=== PATIENT | female | born 1985 ===

== ENCOUNTER 2017-07-31 10:06 | Inpatient (IN) ==
[2017-07-31] MEDS ORDERED: Oxytocin 20 units/ LR 1000 mL 20 UNIT/1,000 ML BAG IVC ONE (11:09)
[2017-07-31] MEDS ORDERED: Famotidine 20 MG/2 ML VIAL IVP PRN (11:09)
[2017-07-31] MEDS ORDERED: Metoclopramide 10 MG/2 ML VIAL IVP PRN (11:09)
[2017-07-31] MEDS ORDERED: CeFAZolin Pre 2,000 MG/100 ML 2,000 MG/100 ML BAG IVPB ONE (11:09)
[2017-07-31] MEDS ORDERED: Ringers Solution, Lactated 1,000 ML IVC ONE (11:09)
[2017-07-31] MEDS ORDERED: Ringers Solution, Lactated 1,000 ML IVC SCH (11:15)
[2017-07-31] MEDS ORDERED: Oxytocin 20 units/ LR 1000 mL 20 UNIT/1,000 ML BAG IVC SCH ×2 (11:15→18:20)
[2017-07-31 12:04] LABS: Basophils % 0.3 %; Eosinophils # 0.2 K/mcL (0.0-0.6); Eosinophils % 1.6 %; Hemoglobin 12.5 g/dL (11.5-15.4); Immature Granulocytes % 0.6 % (0-4); Lymphocytes # 1.8 K/mcL (0.6-4.6); Lymphocytes % 17.8 %; Mean Corpuscular HGB Conc 32.9 g/dL (31.6-35.5); Mean Corpuscular Hemoglobin 28.7 pg (28.0-33.3); Mean Corpuscular Volume 87.2 fL (83.0-100.0); Mean Platelet Volume 11.7 fL (9.4-12.4); Monocytes # 0.6 K/mcL (0.0-1.3); Neutrophils # 7.6 K/mcL (1.6-8.9); Platelet Count 162 K/mcL (140-400); Red Blood Count 4.36 M/mcL (3.82-4.97); Red Cell Distribution Width 14.4 % (11.5-14.5); Segmented Neutrophils % 73.7 %
[2017-07-31 12:13] LABS: Amphetamine Screen,Urine Negative ng/mL (Cutoff=1000); Barbiturate Screen,Urine Negative ng/mL (Cutoff=200); Benzodiazepines Screen,Urine Negative ng/mL (Cutoff=200); Cannabinoid Screen,Urine Negative ng/mL (Cutoff = 50); Cocaine Screen,Urine Negative ng/mL (Cutoff= 300); Opiate Screen,Urine Negative ng/mL (Cutoff=300); Phencyclidine Screen,Urine Negative ng/mL (Cutoff=25)
--- NOTE | 2017-07-31 13:20 | OB/GYN History & Physical ---
Date of Encounter: 07/31/17 Time of Encounter: 13:18 Assessment and Plan (1) 39 weeks gestation of Current visit: No Status: Acute Patient presents at 39 weeks gestation for repeat section as well as bilateral partial salpingectomy. Questions are answered and consent was obtained. History of Present Illness Chief complaint: Here for repeat c-sec and BPS HPI: Ms. Marcos is a 32 year old female as instructed for repeat section as well as tubal ligation. was first been uncomplicated. Upon arrival she reports good movement denies bleeding and leakage fluid. She does desire permanent sterilization. Consent was obtained questions answered Past Med Surg Social Fam HX - Past Medical History Source: patient, old records reviewed Medical history: no medical history Psychiatric history: no psych history - Past Surgical History Surgical History: - Social History Smoking Status: Never smoker Smokeless Tobacco Status: No Alcohol use: none Drug use: none - Family History Father Name: denies any medical history Living Status: Still Living Hx Family Endocrine Disorder: Yes Obstetrical History - Pregnancies : 3 Para: 2 Medications and Allergies Vit/FA 1 each PO DAILY 09/29/15 [History] 3 Allergy/AdvReac Type Severity Reaction Status Date / Time No Known Allergies Allergy Verified 09/29/15 11:01 Exam - Constitutional Constitutional: well developed, well nourished - HEENT HEENT: EOMI, PERRL - Lungs Respiratory exam: CTAB - Cardiovascular Cardiovascular exam: RRR - Abdomen Abdomen: Present: gravid, non tender - Extremities Deep Tendon Reflex Grade: 2+ Normal Results Result Diagrams: 07/31/17 10:40 All other labs normal.
--- NOTE | 2017-07-31 13:44 | Anesthesia Evaluation PreOp ---
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 Other Medical History: Denies Any Significant HX Anesthesia History: No Prior Anesthetic Complications, Past Anesthesia ( sections x 2) : Yes () Alcohol Use: none Drug use: none Medications and Allergies Vit/FA 1 each PO DAILY 09/29/15 [History] 3 Allergy/AdvReac Type Severity Reaction Status Date / Time No Known Allergies Allergy Verified 09/29/15 11:01 - Meds/Allergy Pre-op Review Medications Reviewed: Yes Allergies Reviewed: Yes Beta Blockers on Current Med List: No Anesthesia Results - Labs 07/31/17 10:40 Anesthesia Exam O2 Sat Height 1.57 m Weight 62.8 kg bp 111/65 Height: 62 Weight: 62 NPO (# of Hours): greater than 8 hours - HEENT Pupil (Motor): Pupils equal Mallampati: II Teeth: Normal Oral Opening: Greater than 3 - BINDERY CUTTER OPERATOR LOC: Oriented BINDERY CUTTER OPERATOR Motor: Normal RUE, Normal LUE, Normal RLE, Normal LLE, Normal Face BINDERY CUTTER OPERATOR Sensory: Normal: RUE, LUE, RLE, LLE, Face - Cardiac Rhythm: Regular Murmur: None JVD: No Carotid Bruit: No - Pulmonary Breath Sounds: bilateral Clear Respiratory Effort: Symmetrical Anesthesia Assess/Plan ASA Score: 2 Modified Violeta Scale for Level of Consciousness: Cooperative, oriented, and tranquil Anesthetic Plan: Regional Monitoring Plan: Standard Monitors Recovery Plan: PACU
[2017-07-31] MEDS ORDERED: *HR* FentaNYL (PF) 100 MCG/2 ML VIAL ONE (14:18)
[2017-07-31] MEDS ORDERED: *HR* Morphine Sulfate/PF 5 MG/10 ML AMPUL ONE (14:18)
[2017-07-31] MEDS ORDERED: *HR* Oxytocin 10 UNIT/ML VIAL IM ONE (14:19)
[2017-07-31] MEDS ORDERED: Ondansetron 4 MG/2 ML VIAL IVP ONE (14:43)
[2017-07-31] MEDS ORDERED: *HR* HYDROmorphone (PF) 1 MG/ML SYRINGE IVP PRN (14:43)
[2017-07-31] MEDS ORDERED: *HR* Promethazine 25 MG/ML VIAL IVP PRN (14:43)
[2017-07-31] MEDS ORDERED: Ringers Solution, Lactated 1,000 ML ONE (14:55)
--- NOTE | 2017-07-31 15:53 | OB/GYN Procedure Note ---
Section - Date of procedure: 07/31/17 Preop diagnosis: desires repeat , desires sterilization Post-op diagnosis: same Procedure: section, repeat low transverse, bilateral tubal ligation Surgeon: Jamey Freeman Estimated blood loss (cc): 500 [employer] Representative: Emmett Arora Anesthesia Type: Spinal section complications: none Disposition: PACU - (s) A Infant Delivery Date: 07/31/17 Delivery Time: 14:59 Presentation: vertex Position: unknown Gender: Female Gram Weight: 3.16 kg at 1 minute: 8 at 5 minutes: 9 Shoulder Dystocia: not encountered Specimens collected: cord blood Placenta: spontaneous Cord: 3 umbilical vessels - Narrative Narrative: She was taken operating room where spinal anesthesia was administered she prepped draped in usual sterile fashion bladder was drained of clear urine. Scalp was used to make Pfannenstiel skin incision was sharply taken down the rectus fascia rectus fascia was incised midline fascial incision was extended bilaterally plain was developed and rectus muscle rectus fascia sipping distally rectus muscle divided midline peritoneum was entered sharply and bladder blade was placed and bladder flap was developed and lower uterine segment scalpel was used to make a low transverse uterine incision this was extended bluntly bilaterally membranes were ruptured clear fluid and infant was delivered from vertex presentation oropharynx and nasopharynx were suctioned of clear fluid cord was clamped and cut and infant was handed nurse personnel who were in attendance. Weight was found to be 6 lbs. 15 oz. Apgars of 8 at 1 minute and 9 at 5 minutes with spontaneous deliver normal placenta with three- vessel cord. Uterus was closed with 0 Vicryl running lock stitch second imbricating layer was placed with the first obtain hemostasis. Approximate 3 similar segment of each fallopian tube was double ligated with oh plain catgut suture transected and removed without difficulty irrigation was performed hemostasis was ensured fascia was closed 0 Vicryl running manner after closure of fascia can irrigation performed hemostasis was ensured skin edges reapproximated with 4-0 Vicryl all sponge and instruments counts are correct patient was taken recovery in good condition
[2017-07-31] MEDS ORDERED: Acetaminophen 325 MG TABLET PO PRN (18:20)
[2017-07-31] MEDS ORDERED: Measles/Mumps/Rubella Vacc 0.5 ML VIAL SQ PRN (18:20)
[2017-07-31] MEDS ORDERED: Rho Immune Globulin 1,500 UNIT SYRINGE IM PRN (18:20)
[2017-08-01 04:32] LABS: Basophils % 0.3 %; Eosinophils # 0.1 K/mcL (0.0-0.6); Eosinophils % 1.2 %; Hematocrit 34.9 % (35.3-44.9); Hemoglobin 11.2 g/dL (11.5-15.4); Immature Granulocytes % 0.4 % (0-4); Mean Corpuscular HGB Conc 32.1 g/dL (31.6-35.5); Mean Corpuscular Hemoglobin 27.9 pg (28.0-33.3); Mean Corpuscular Volume 86.8 fL (83.0-100.0); Mean Platelet Volume 11.3 fL (9.4-12.4); Monocytes # 0.6 K/mcL (0.0-1.3); Monocytes % 4.6 %; Neutrophils # 9.1 K/mcL (1.6-8.9); Platelet Count 165 K/mcL (140-400); Red Blood Count 4.02 M/mcL (3.82-4.97); Red Cell Distribution Width 14.2 % (11.5-14.5); Segmented Neutrophils % 76.5 %
[2017-08-01] MEDS: Ibuprofen 600 MG TABLET PO PRN ×2 (07:59→17:50)
[2017-08-01] MEDS: Prenatal Vit/FA 1 EACH TABLET PO SCH (07:59)
--- NOTE | 2017-08-01 10:19 | OB/GYN Progress Note ---
Date of Encounter: 08/01/17 Time of Encounter: 09:00 - Assessment and Plan (1) S/P repeat low transverse Current Visit: No Status: Acute POD#[address] Baptiste Patient tolerating regular diet and passing urine No flatus or BM as of yet Meeting POD1 milestones Continue current care plan Likely DC tomorrow Subjective - Subjective Interval history: Lochia mild Patient reports: appetite normal, voiding normally, pain well controlled, ambulating normally, no nauseated Lingle: doing well Objective - Vital Signs Latest vital signs: Vital Signs Temp Pulse Pulse Resp BP Pulse Ox 08/01/17 07:30 97.6 F 69 12 101/65 100 08/01/17 03:15 97.9 F 74 14 98/63 96 08/01/17 00:26 90 16 07/31/17 21:10 98.1 F 79 79 16 99/57 100 07/31/17 20:05 98.3 F 91 16 106/66 100 07/31/17 19:05 97.8 F 67 67 16 92/60 99 07/31/17 18:56 97.8 F 102 12 124/77 98 07/31/17 18:00 98.2 F 69 12 94/54 100 Intake and Output 07/31/17 08/01/17 08/01/17 23:59 07:59 15:59 Intake Total 240 / 240 360 / 360 Output Total 200 / 200 850 / 850 650 / 650 Balance 40 / 40 -490 / -490 -650 / -650 Intake: Oral 240 / 240 360 / 360 Output: Urine 650 / 650 Emesis 200 / 200 Catheter 850 / 850 Other: Weight 61.008 kg Patient Weight 08/01/17 23:59 Weight 61.008 kg - Exam Lungs: bilateral: normal Chest: Normal S1, Normal S2 Abdomen: Present: normal appearance Incision: Present: normal, dry, intact Uterus: Present: normal, firm - Labs Labs: Laboratory Results - last 24 hr 07/31/17 07/31/17 08/01/17 10:40 11:27 03:52 WBC 10.2 11.9 H RBC 4.36 4.02 Hgb 12.5 11.2 L Hct 38.0 34.9 L MCV 87.2 86.8 MCH 28.7 27.9 L MCHC 32.9 32.1 RDW 14.4 14.2 Plt Count 162 165 MPV 11.7 11.3 Immature Gran % 0.6 0.4 Seg Neutrophils % 73.7 76.5 Lymphocytes % 17.8 17.0 Monocytes % 6.0 4.6 Eosinophils % 1.6 1.2 Basophils % 0.3 0.3 Neutrophils # 7.6 9.1 H Lymphocytes # 1.8 2.0 Monocytes # 0.6 0.6 Eosinophils # 0.2 0.1 Basophils # 0.0 0.0 Urine Opiates Screen Negative Ur Barbiturates Screen Negative Ur Phencyclidine Scrn Negative Ur Amphetamines Screen Negative U Benzodiazepines Scrn Negative Urine Cocaine Screen Negative U Marijuana (THC) Screen Negative
[2017-08-02] MEDS: Ibuprofen 600 MG TABLET PO PRN (00:31)
[2017-08-02] MEDS: Prenatal Vit/FA 1 EACH TABLET PO SCH (08:28)
[2017-08-02 08:53] VITALS: BP 120/75
--- NOTE | 2017-08-02 10:20 | Discharge Summary ---
Date of Encounter: 08/02/17 Time of Encounter: 10:18 - Discharge Diagnosis (1) Mother currently breast-feeding Priority: Secondary Status: Acute (2) S/P repeat low transverse Priority: Primary Status: Acute Comments: Pt meeting all milestones. - Discharge Medications Prescriptions: Ibuprofen [Motrin] 600 mg PO Q6HR PRN #60 tab PRN Reason: Cramping Docusate [Colace] 100 mg PO BID #60 Home Medications: Vit/FA 1 each PO DAILY 09/29/15 [History] Docusate [Colace] 100 mg PO BID #60 08/02/17 [Rx] Ibuprofen [Motrin] 600 mg PO Q6HR PRN #60 tab 08/02/17 [Rx] Allergies/Adverse Reactions: 3 Allergy/AdvReac Type Severity Reaction Status Date / Time No Known Allergies Allergy Verified 09/29/15 11:01 Data Procedures and tests throughout hospitalization: Laboratory Tests 07/31/17 07/31/17 08/01/17 10:40 11:27 03:52 WBC 10.2 11.9 H RBC 4.36 4.02 Hgb 12.5 11.2 L Hct 38.0 34.9 L MCV 87.2 86.8 MCH 28.7 27.9 L MCHC 32.9 32.1 RDW 14.4 14.2 Plt Count 162 165 MPV 11.7 11.3 Immature Gran % 0.6 0.4 Seg Neutrophils % 73.7 76.5 Lymphocytes % 17.8 17.0 Monocytes % 6.0 4.6 Eosinophils % 1.6 1.2 Basophils % 0.3 0.3 Neutrophils # 7.6 9.1 H Lymphocytes # 1.8 2.0 Monocytes # 0.6 0.6 Eosinophils # 0.2 0.1 Basophils # 0.0 0.0 Urine Opiates Screen Negative Ur Barbiturates Screen Negative Ur Phencyclidine Scrn Negative Ur Amphetamines Screen Negative U Benzodiazepines Scrn Negative Urine Cocaine Screen Negative U Marijuana (THC) Screen Negative Date of admission: 07/31/17 10:06 Primary care physician: Kim Murillo CNP Consults: 07/31/17 18:20 Consult to Director Physical [CONS] Routine Comment: Vaginal delivery, consult needed Discharging clinician: Kathleen Jeong Anticipated date of discharge: 08/02/17 - Patient Status Disposition: Home, Self-Care Condition: Good Functional capacity at discharge: independent ambulation Overall status at discharge: patient is progressing back to baseline - Discharge Instructions Follow Up With: Kim Murillo CNP [Primary Care Provider] - Jamey Freeman MD [Partnered Physician] - Additional Instructions: Perineal Care: Always wipe front to back Change your pad frequently Use your misael bottle with warm water and spray front to back Do not douche, use tampons, have sexual intercourse or put anything in your vagina for 4-6 weeks after delivery Bleeding: Vaginal bleeding can last up to 6 weeks Your menstrual period may return as early as 6 weeks after you are discharged from the hospital Rama/Stitches Care: Vaginal Delivery Vaginal stitches will dissolve within 4-6 weeks Follow perineal care instructions Care Stitches will dissolve on their own If you have rama, they will need to be removed in the doctors office within 5-7 days. You may shower with stitches or rama Drip plan or soapy water over the incision to clean. Pat dry gently with a clean towel. Make sure you completely dry under the skin folds DO NOT USE powders, lotions, rubbing alcohol or hydrogen peroxide on or around your incision. This will slow your wound healing It is normal to have soreness, burning, tingling, itchiness and/or numbness as your incision heals Activity: Rest frequently Do not lift anything heavier than a gallon of milk, up to 10-15 pounds No driving for 1-2 weeks for Vaginal delivery No driving for 2-4 weeks for delivery Take stairs slowly, one at a time Gradually increase your daily activity until you are back to your normal routine Do not exercise until you have had your follow-up appointment Bathing: Take a shower daily Do not take a tub bath for the first 4 weeks Diet: Drink plenty of water and fruit juices Eat a well-balanced diet with foods high in fiber such as fruits and vegetables Depression: Your hormones have a major impact on your feelings and emotions. Hormone imbalance may cause changes in your mood, creating unfamiliar thoughts and actions. Support is available to help you understand and cope with these feelings and mood changes. If you answer yes to any of the following questions, please call your health care provider: Are you having trouble sleeping? Are you feeling isolated? Have you lost your appetite? Are you having thoughts of hurting yourself or others? WARNING SIGNS: Heavy bleeding from the vagina (blood is bright red and soaks a sanitary pad in an hour or less.) Passing a blood clot larger than your fist Discharge from the vagina that has a bad odor Temperature over 100.4 F, or if you feel cold and have chills An episiotomy site that is warm, swollen or oozing. Use a mirror if needed Urination (pee) that is painful, very red and swollen or leaking fluid An incision that is painful, very red and swollen and leaking fluid An incision that has come open Breasts that are painful or full with flu like symptoms Redness, warmth or swelling in the calf of your leg Trouble breathing, dizziness, visual disturbance or faintness *Notify your health care provider immediately or go to the nearest Emergency Room if you experience any of the above signs.* To contact the nurses station 24 hours a day, For non-urgent, routine questions, please call the office at - Diet and Activity Activity: resume usual activities as tolerated Diet: regular diet Hospital Course Reason for admission: section Delivery: section Episiotomy: none Laceration: none Other procedures: tubal ligation complications: none Discharge diagnosis: IUP at term delivered baby: female Hospital course: - Date of procedure: 07/31/17 Preop diagnosis: desires repeat , desires sterilization Post-op diagnosis: same Procedure: section, repeat low transverse, bilateral tubal ligation Surgeon: Jamey Freeman Estimated blood loss (cc): 500 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 Line: Emmett Arora Anesthesia Type: Spinal section complications: none Disposition: PACU - (s) Infant A Delivery Date: 07/31/17 Infant Delivery Time: 14:59 Presentation: vertex Position: unknown Gender: Female Gram Weight: 3.16 kg at 1 minute: 8 at 5 minutes: 9 Shoulder Dystocia: not encountered Specimens collected: cord blood Placenta: spontaneous Cord: 3 umbilical vessels Time Attestation: Total time spent providing and/or coordinating discharge services: Time Spent: Less than 30 minutes - VTE Documentation of Mechanical Device: Intermittent pneumatic compression device Exam - Constitutional Vitals: Temp Pulse Resp BP Pulse Ox 97.8 F 90 16 120/75 97 08/02/17 08:52 08/02/17 08:52 08/02/17 08:52 08/02/17 08:52 08/02/17 08:52 General appearance IM: A&O X 3 - Respiratory Respiratory exam: Present: CTAB - Cardiovascular Cardiovascular exam IM: Present: RRR - GI/Abdominal GI/Abdominal exam IM: soft Incision: dry, intact - Uterine Tone: Firm - Extremities Exam Extremities exam IM: Present: normal inspection - Neurological Exam Neurological exam: normal gait, oriented X3 - Psychiatric Additional comments: reprts good mood
== END 2017-08-02 14:00 | disposition home or self-care (01) | DRG 766 ==
LOC: 1NENULAB 10:06 → 1NENUOBS 18:17
PROVIDERS: ADMIT Obstetrics & Gynecology; ATTEND Obstetrics & Gynecology